=== PATIENT | female | born 1975 | race American Indian/Alaskan Native ===

== ENCOUNTER 2017-02-09 21:31 | Emergency (ER) | payer MEDICAID ==
[2017-02-09 23:12] VITALS: BP 133/90
== END 2017-02-10 02:13 | disposition left against medical advice (07) ==
LOC: ED 21:31
DX: M79.89 Other specified soft tissue disorders (principal); Z53.21 Procedure and treatment not carried out due to patient leaving prior to being seen by health care provider

== ENCOUNTER 2017-03-13 14:32 | Emergency (ER) | payer MEDICAID ==
[2017-03-13 14:52] VITALS: BP 122/97
[2017-03-13 15:22] LABS: Basophils % (Auto) 0.9 % (0.0-1.8); Hematocrit 40.1 % (30.3-42.9); Hemoglobin 13.1 gm/dl (10.1-14.3); Mean Corpuscular HGB Conc 33 % (30-34); Mean Corpuscular Hemoglobin 28 pg (28-32); Mean Corpuscular Volume 84 fl (79-97); Platelet Count 306 K/mm3 (140-440); Red Blood Count 4.78 M/mm3 (3.65-5.03); Red Cell Distribution Width 18.3 % (13.2-15.2); White Blood Count 6.9 K/mm3 (4.5-11.0)
[2017-03-13 15:36] LABS: Alanine Aminotransferase 44 units/L (7-56); Albumin 4.3 g/dL (3.9-5); Albumin/Globulin Ratio 1.2 %; Alkaline Phosphatase 113 units/L (35-129); Anion Gap 23 mmol/L; Blood Urea Nitrogen 11 mg/dL (7-17); Calcium 9.4 mg/dL (8.4-10.2); Carbon Dioxide 20 mmol/L (22-30); Glucose 80 mg/dL (65-100); Lipase 23 units/L (13-60); Potassium 4.1 mmol/L (3.6-5.0); Sodium 134 mmol/L (137-145)
== END 2017-03-13 22:30 | disposition left against medical advice (07) ==
LOC: ED 14:32
DX: R07.89 Other chest pain (principal); Z53.21 Procedure and treatment not carried out due to patient leaving prior to being seen by health care provider
CPT/HCPCS: 36415; 80053; 83690; 84484; 84703; 85025; 93005; 93010

== ENCOUNTER 2018-01-21 22:17 | Emergency (ER) | payer MEDICAID | END 2018-01-21 22:20 | disposition left against medical advice (07) | LOC: ED 22:17 | DX: S61.219A Laceration without foreign body of unspecified finger without damage to nail, initial encounter (principal); Z53.21 Procedure and treatment not carried out due to patient leaving prior to being seen by health care provider; W45.8XXA Other foreign body or object entering through skin, initial encounter; Y93.89 Activity, other specified; Y92.89 Other specified places as the place of occurrence of the external cause; Y99.8 Other external cause status ==